=== PATIENT | male | born 1990 | race Caucasian/White ===

== ENCOUNTER 2016-05-03 12:23 | Emergency (ER) | payer OTHER ==
[2016-05-03] MEDS ORDERED: NO HOME MEDICATION XX (14:12)
== END 2016-05-03 15:20 ==
LOC: EDMED 12:23
PROC: 0HQDXZZ Repair Right Lower Arm Skin, External Approach (ICD-10-PCS; principal; 2016-05-03)
DX: S51.811A Laceration without foreign body of right forearm, initial encounter (principal); W22.8XXA Striking against or struck by other objects, initial encounter; Y93.89 Activity, other specified; Y92.89 Other specified places as the place of occurrence of the external cause; Y99.8 Other external cause status